=== PATIENT | female | born 1985 | race Caucasian/White ===

== ENCOUNTER 2024-04-08 14:28 | Emergency (ER) | payer OTHER, SELFPAY ==
[2024-04-08 14:33] VITALS: BP 134/83; BMI 43.0
[2024-04-08 15:00] VITALS: BMI 43.0
--- NOTE | 2024-04-08 15:47 | ED.GENMED ---
History of Present Illness
General
Chief Complaint: Rabies
Source: patient
Exam Limitations: none
Time Seen by Provider: 04/08/24 14:51
Nursing documentation reviewed up to this point in time: agreed with
History of Present Illness
History of Present Illness:
38-year-old female presenting to the emergency department today with concern in her home with this morning denies any specific exposure that she is aware of. She was admitted for prophylaxis here.
Review of Systems
Review of Systems
Allergies reviewed?: Yes
All Other Systems: ROS reviewed and negative except as documented in HPI and ROS
Phy Exam
Physical Exam
Physical Exam:
GENERAL: Alert , in no apparent distress
EYE: pupils equal and reactive
NECK: Supple, no significant adenopathy.
ENT: o/p clr, mmm.
CARDIAC: Regular rate and rhythm .
LUNGS: Clear breath sounds bilaterally, no acute respiratory distress, no wheezes/rales/rhonchi
ABDOMEN: Soft, without focal tenderness, no r/g, no cvat
NEUROLOGICAL: Alert and oriented, no focal neuro deficits
SKIN: Warm and dry, skin intact.
MUSCULOSKELETAL: No edema, well perfused.
PSYCH: Normal and appropriate interaction.
Course
Orders/Labs/Results
Orders:
Orders
04/08/24 15:20
Rabies Immune Globulin/Pf [HyperRAB] 2,100 unit IM NOW STA
04/08/24 15:30
Rabies Vaccine (Pcec)/Pf [Rabavert Rabies Vacc W-Diluent] 2.5 unit IM .ONCE ONE
Vital Signs
Initial and Last Documented VS:
Initial Vital Signs
Temp Pulse Resp BP Pulse Ox
98.5 F 92 16 134/83 96
04/08/24 14:33 04/08/24 14:33 04/08/24 14:33 04/08/24 14:33 04/08/24 14:33
Last Documented Vital Signs
Temp Pulse Resp BP Pulse Ox
98.5 F 92 16 134/83 96
04/08/24 14:33 04/08/24 14:33 04/08/24 14:33 04/08/24 14:33 04/08/24 14:33
MDM/Problems Addressed
MDM/Problems Addressed:
38-year-old female presenting to the emergency department today with concerns of potential bat exposure earlier this morning. Denies any specific injuries. Otherwise feels well. Prophylaxis started will follow-up for subsequent vaccines. Return
precautions given.
*Critical Care Note
Total Time (30-74mins, 75-104mins- exclusive of procedures): Not Applicable
ED Attending Note
-
Portions of this chart may have been created with voice recognition software.� Occasional wrong word or��sound alike� substitutions may have occurred due to the inherent limitations of voice recognition software.
Discharge Plan
Departure
Patient Disposition: Home (Routine Discharge)
Date of Disposition: 04/08/24
Time of Disposition: 15:47
Patient with high blood pressure during this ER visit?: No
Condition: Good
Covid-19: Not Applicable
Discharge Problem:
Exposure to bat without known bite
Instructions: Rabies
Prescriptions:
New
RabAvert (PF) 2.5 unit Suspension For Reconstitution
1 ml IM . DIRECTED Qty: 3 0RF
Rx Instructions:
See Rabies Vaccine Post Exposure Prophylaxis Instruction Sheet for Dosing Instructions
No Action
omeprazole 40 mg Capsule,Delayed Release(Dr/Ec)
40 mg PO DAILY
Mirena 21 mcg/24 hr (8 yrs) 52 mg Intrauterine Device
1 device INTRAUTERINE UD
Referrals:
Chelo Lynn, DO [Family Provider] -
Stand Alone Forms: Rabies Vaccine Post Exp Dosing
Activity Restrictions/Additional Instructions:
You came to the emergency department today after a bat exposure. Please follow-up for subsequent vaccines. Return to the emergency department for any worsening, new or concerning symptoms.
Interventions
Interventions:
*Risk Screen - Suicide Last Done: 04/08/24 14:33
*Neglect/Abuse Screening Last Done: 04/08/24 14:33
ED- Fall Risk Assessment Last Done: 04/08/24 14:33
Discharge Date and Time
Print Language: GEORGIAN
[2024-04-08] MEDS: RABAVERT RABIES VACC W-DILUENT 2.5 UNIT IM (16:11)
[2024-04-08] MEDS: HyperRAB 2100 UNIT IM (16:11)
== END 2024-04-08 16:56 | disposition home or self-care (01) ==
LOC: EMR 14:28
PROVIDERS: EMERGENCY PHYSICIAN Emergency Medicine; FAMILY PHYSICIAN Family Medicine
DX: Z20.3 Contact with and (suspected) exposure to rabies (principal); Z23 Encounter for immunization; Z29.14 Encounter for prophylactic rabies immune globulin
CPT/HCPCS: 99282; 90471; 96372; 90375; 90675

== ENCOUNTER → 2025-01-11 14:07 | Outpatient (REF) | payer OTHER, SELFPAY | LOC: RAD 14:07 | PROVIDERS: ATTENDING PHYSICIAN Physician Assistant Medical | DX: R10.9 Unspecified abdominal pain (principal) | CPT/HCPCS: 74177; Q9967 ==

== ENCOUNTER → 2025-04-19 09:32 | Outpatient (REF) | payer OTHER, SELFPAY | LOC: RAD 09:32 | PROVIDERS: ATTENDING PHYSICIAN Physician Assistant Medical | DX: Z87.42 Personal history of other diseases of the female genital tract (principal); R73.09 Other abnormal glucose; M79.651 Pain in right thigh; R22.41 Localized swelling, mass and lump, right lower limb; M79.601 Pain in right arm | CPT/HCPCS: 73080; 73110; 76830; 76856; 93971 ==

== ENCOUNTER 2025-05-05 06:26 | Day surgery (SDC) | payer OTHER, SELFPAY | END 2025-05-05 11:32 | disposition home or self-care (01) | LOC: GI 06:26 | PROVIDERS: ATTENDING PHYSICIAN Internal Medicine Gastroenterology; FAMILY PHYSICIAN Physician Assistant Medical | DX: R19.4 Change in bowel habit (principal); R93.3 Abnormal findings on diagnostic imaging of other parts of digestive tract; R10.31 Right lower quadrant pain; K44.9 Diaphragmatic hernia without obstruction or gangrene; K31.7 Polyp of stomach and duodenum; R12 Heartburn | CPT/HCPCS: 45378; 43239; 88305 ==

== ENCOUNTER → 2025-05-27 13:22 | Outpatient (REF) | payer OTHER, SELFPAY | LOC: HWRAD 13:22 | PROVIDERS: ATTENDING PHYSICIAN Chiropractor; FAMILY PHYSICIAN Physician Assistant Medical | DX: M54.12 Radiculopathy, cervical region (principal); M53.1 Cervicobrachial syndrome; M25.511 Pain in right shoulder | CPT/HCPCS: 72050; 73030 ==